=== PATIENT | female | born 1935 | race African-American/Black ===

== ENCOUNTER 2017-02-25 21:10 | Emergency (ER) | payer OTHER ==
[~2017-02-25] VITALS: Ht 170.2 cm; Wt 61.2 kg
--- NOTE | ~2017-02-25 | EKG ---
[place] [address] [facility] [place] [address] ELECTROCARDIOGRAM REPORT Name: EDUARDAYanickMOISES Room #: [facility] Stan#: [id number] Admission: 02/25/17 Attend Phys: Discharge: 02/26/17 Date of : 39 Report #: [id number] THIS REPORT FOR: //name// [facility] ED Test Date: 2017-02-25 Test Time: 22:19:04 Pat Name: MOISES CONDE Department: Room: Gender: F Legal Support Specialist: Yanick GRIFFIN : 1935 Requested By: Xenia Pollard Order Number: [id number] MD: Gregg Arreaga Measurements Intervals [place] Rate: 77 P: 51 NH: 182 QRS: 9 QRSD: 84 T: 47 QT: 386 QTc: 437 Interpretive Statements Sinus rhythm No significant abnormality No previous ECG available for comparison Electronically Signed On 02-26-2017 12:32:57 CDT by Gregg Arreaga [email or web address] <ELECTRONICALLY SIGNED> By: Gregg Arreaga MD, [facility] 02/26/17 1232 2219 2219 Gregg Arreaga MD, FACC /EPI
[2017-02-25 23:07] LABS: ABSOLUTE NEUTROPHILS 5.4 thou/uL (1.4-8.2); BASOPHILS 0.9 % (0.0-2.0); EOSINOPHILS 3.1 % (0.0-3.0); HEMATOCRIT 35.8 % (37.0-47.0); HEMOGLOBIN 12.6 gm/dL (12.0-15.0); LYMPHOCYTES 16.9 % (24.0-44.0); MCH 37.8 pg (26.0-34.0); MCHC 35.1 g/dL (28.0-37.0); MCV 107.7 fL (80.0-100.0); MONOCYTES 9.5 % (1.0-8.0); PLATELET COUNT 174 thou/uL (150-400); POLYS 69.6 % (36.0-66.0); RBC 3.32 mil/uL (4.20-5.00); RDW 12.9 % (10.5-14.5); WBC 7.7 thou/uL (4.0-11.0)
[2017-02-25 23:10] LABS: MANUAL DIFF NO
[2017-02-25 23:15] LABS: ANION GAP 7 mmol/L (7-16); BUN 24 mg/dL (7-18); CALCIUM 9.3 mg/dL (8.5-10.1); CHLORIDE 105 mmol/L (98-107); CO2 29 mmol/L (21-32); CREATININE 1.2 mg/dL (0.6-1.0); GLUCOSE 139 mg/dL (74-106); POTASSIUM 3.2 mmol/L (3.5-5.1); SODIUM 141 mmol/L (136-145)
[2017-02-25 23:23] LABS: ALBUMIN 3.6 g/dL (3.4-5.0); ALKALINE PHOSPHATASE 72 U/L (46-116); SGOT 17 U/L (15-37); SGPT 15 U/L (30-65); TOTAL BILIRUBIN 0.3 mg/dL (<0.1-1.0); TOTAL PROTEIN 7.2 g/dL (6.4-8.2); TROPONIN-I < 0.04 ng/mL (<0.04-0.07)
[2017-02-26 00:45] VITALS: BP 123/61
== END 2017-02-26 00:50 | disposition home or self-care (01) ==
LOC: ER 21:10
PROVIDERS: Nurse Practitioner Family
DX: R06.02 Shortness of breath (principal); I10 Essential (primary) hypertension; E78.00 Pure hypercholesterolemia, unspecified; F17.210 Nicotine dependence, cigarettes, uncomplicated; Z85.3 Personal history of malignant neoplasm of breast